=== PATIENT | male | born 1985 | race African-American/Black ===

== ENCOUNTER 2022-03-17 13:17 | Outpatient (CLI) | payer OTHER, SELFPAY ==
[2022-03-17 19:18] LABS: Basophils Absolute Auto 0.1 K/mm3 (0.0-0.1); Basophils Percent Auto 0.5 % (0.2-1.2); Eosinophils Absolute Auto 0.1 K/mm3 (0-0.3); Eosinophils Percent Auto 0.5 % (0-4.4); Hematocrit 48.1 % (42.0-52.0); Hemoglobin 15.4 g/dL (14.0-18.0); Immature Granulocyte Absolute 0.05 K/mm3 (0.00-0.031); Immature Granulocyte Percent A 0.3 % (0-0.5); Lymphocytes Absolute Auto 2.33 K/mm3 (0.9-3.2); Lymphocytes Percent Auto 15.4 % (18.3-44.2); Mean Corpuscular Hemoglobin 27.3 pg (26-34); Mean Corpuscular Volume 85.1 fl (80-100); Mean Platelet Volume 10.4 fl (7.4-10.4); Monocytes Absolute Auto 1.4 K/mm3 (0.1-0.6); Monocytes Percent Auto 9.1 % (2.6-8.5); Neutrophils Absolute Auto 11.2 K/mm3 (1.3-6.7); Neutrophils Percent Auto 74.2 % (45.5-73.1); Platelet Count Result 352 k/mm3 (150-375); Red Blood Count 5.65 M/mm3 (4.6-6.20); Red Cell Distribution Width 15.4 % (11.5-14.5); White Blood Count 15.1 K/mm3 (4.5-10.0)
[2022-03-17 19:35] LABS: Alanine Aminotransferase 25 U/L (6-50); Albumin Level 4.3 g/dL (3.5-5.1); Alkaline Phosphatase 60 U/L (38-126); Anion Gap 10 mmol/L (8-16); Aspartate Amino Transferase 38 U/L (17-59); Bilirubin,Total 0.6 mg/dL (0.2-1.3); Blood Urea Nitrogen 12 mg/dL (9-20); Calcium 9.8 mg/dL (8.4-10.2); Carbon Dioxide 30 mmol/L (22-30); Chloride 101 mmol/L (98-107); Cholesterol 169 mg/dL (0-200); Estimated Glomerular Filt Rate > 60; Glucose 89 mg/dL (65-110); HDL Direct 44 mg/dL; Potassium 4.1 mmol/L (3.4-5.0); Sodium 141 mmol/L (137-145); Triglycerides 83 mg/dL (<150)
[2022-03-17 19:46] LABS: LDL Cholesterol Direct 89 mg/dL
== END 2022-03-17 13:18 | disposition home or self-care (01) ==
LOC: ANHGOSHLAB 13:21
PROVIDERS: PCP Internal Medicine; Visit Provider Clinical Nurse Specialist
DX: Z13.228 Encounter for screening for other metabolic disorders (principal); Z13.220 Encounter for screening for lipoid disorders
CPT/HCPCS: 36415; 80053; 80061; 85025

== ENCOUNTER 2022-03-17 17:16 | Outpatient (CLI) | payer OTHER, SELFPAY ==
--- NOTE | ~2022-03-17 | US_ITS ---
EXAMINATION: US soft tissue pelvic DATE: 03/17/2022 17:45 INDICATION: Other specified disorders of male genital organs. TECHNIQUE: Multiple grayscale and Doppler ultrasound images of the pelvis were obtained. COMPARISON: ultrasound 01/27/15 FINDINGS: There is a 3.3 x 2.4 x 2.1 cm subcutaneous hypoechoic and anechoic mass in the perineum. No internal vascular flow. IMPRESSION: 1. 3.3 cm subcutaneous mass in the perineum with worsening from 01/27/15, most likely a sebaceous cyst . Reviewed, dictated and finalized at location A. EM DEVELOPER ASSOCIATE MANAGER IMPRESSION: 1. 3.3 cm subcutaneous mass in the perineum with worsening from 01/27/15, most l ikely a sebaceous cyst.
== END 2022-03-17 17:17 | disposition home or self-care (01) ==
LOC: ANHIMG 17:18
PROVIDERS: PCP Internal Medicine; Visit Provider Clinical Nurse Specialist
DX: N50.89 Other specified disorders of the male genital organs (principal)
CPT/HCPCS: 76857

== ENCOUNTER 2022-09-05 09:00 | Outpatient (CLI) | payer OTHER, SELFPAY ==
[2022-09-05 18:48] LABS: Basophils Absolute Auto 0.1 K/mm3 (0.0-0.1); Eosinophils Absolute Auto 0.2 K/mm3 (0-0.3); Hematocrit 45.1 % (42.0-52.0); Hemoglobin 13.8 g/dL (14.0-18.0); Immature Granulocyte Absolute 0.02 K/mm3 (0.00-0.031); Immature Granulocyte Percent A 0.3 % (0-0.5); Lymphocytes Absolute Auto 2.26 K/mm3 (0.9-3.2); Lymphocytes Percent Auto 38.2 % (18.3-44.2); Mean Corpuscular HGB Conc 30.6 g/dl (32-36); Mean Corpuscular Volume 88.3 fl (80-100); Mean Platelet Volume 10.8 fl (7.4-10.4); Monocytes Absolute Auto 0.6 K/mm3 (0.1-0.6); Monocytes Percent Auto 10.2 % (2.6-8.5); Neutrophils Absolute Auto 2.8 K/mm3 (1.3-6.7); Neutrophils Percent Auto 47.3 % (45.5-73.1); Platelet Count Result 308 k/mm3 (150-375); Red Blood Count 5.11 M/mm3 (4.6-6.20); Red Cell Distribution Width 15.6 % (11.5-14.5); White Blood Count 5.9 K/mm3 (4.5-10.0)
[2022-09-05 19:12] LABS: Thyroid Stimulating Hormone 0.959 uIU/mL (0.465-4.680)
[2022-09-05 19:26] LABS: Alanine Aminotransferase 25 U/L (6-50); Albumin Level 4.6 g/dL (3.5-5.1); Alkaline Phosphatase 63 U/L (38-126); Anion Gap 4 mmol/L (8-16); Aspartate Amino Transferase 91 U/L (17-59); Bilirubin,Total 0.4 mg/dL (0.2-1.3); Blood Urea Nitrogen 15 mg/dL (9-20); Calcium 9.3 mg/dL (8.4-10.2); Carbon Dioxide 30 mmol/L (22-30); Chloride 106 mmol/L (98-107); Estimated Glomerular Filt Rate > 60; Glucose 59 mg/dL (65-110); Potassium 3.8 mmol/L (3.4-5.0); Sodium 140 mmol/L (137-145)
== END 2022-09-05 09:01 | disposition home or self-care (01) ==
LOC: ANHGOSHLAB 09:01
PROVIDERS: PCP Internal Medicine; Visit Provider Clinical Nurse Specialist
DX: F41.9 Anxiety disorder, unspecified (principal); Z13.228 Encounter for screening for other metabolic disorders
CPT/HCPCS: 36415; 72100; 80053; 84443; 85025

== ENCOUNTER 2022-09-05 09:33 | Outpatient (CLI) | payer OTHER, SELFPAY ==
--- NOTE | ~2022-09-05 | XR_ITS ---
EXAMINATION: XR lumbar spine 2-3V DATE: 09/05/2022 09:54 INDICATION: Left-sided lumbar radiculopathy TECHNIQUE: Anteroposterior and lateral views of the lumbar spine, and cone-down lateral view of the l umbosacral junction were obtained. COMPARISON: 10/14/2016 FINDINGS: Again noted are 4 nonrib-bearing lumbar vertebra which for purposes of this report will be designated L1-L4. 4 degree thoracolumbar levocurvature L4 spondylolysis with pars intra-articular is defects an d 5 mm anterolisthesis L4 and S1. Vertebral body heights are normal. Moderate disc height loss at L4- S1. Remaining more cephalad lumbar and lower thoracic disc heights are normal. Minimal bilateral sacr oiliac osteoarthritis. IMPRESSION: 1. L4 spondylolysis with 5 mm anterolisthesis L5 on S1 and moderate associated disc height loss. Reviewed, dictated and finalized at location A.
== END 2022-09-05 09:34 | disposition home or self-care (01) ==
PROVIDERS: PCP Internal Medicine; Visit Provider Clinical Nurse Specialist
DX: M54.10 Radiculopathy, site unspecified (principal); M43.02 Spondylolysis, cervical region
CPT/HCPCS: 72100

== ENCOUNTER 2022-09-19 15:53 | Outpatient (CLI) | payer OTHER, SELFPAY ==
[2022-09-22 09:36] LABS: Amphetamines NEGATIVE ng/mL (<500); Barbiturates NEGATIVE ng/mL (<300); Benzodiazepines NEGATIVE ng/mL (<100); Cocaine Metabolite NEGATIVE ng/mL (<150); Marijuana Metabolite POSITIVE ng/mL (<20); Methadone Metabolite NEGATIVE ng/mL (<100); Opiates NEGATIVE ng/mL (<100); Oxidant NEGATIVE mcg/mL (<200); pH 6.5 (4.5-9.0)
== END 2022-09-19 15:54 | disposition home or self-care (01) ==
LOC: ANHGOSHLAB 15:59
PROVIDERS: PCP Internal Medicine; Visit Provider Anesthesiology Pain Medicine
DX: G89.29 Other chronic pain (principal)
CPT/HCPCS: 80307

== ENCOUNTER 2022-10-20 14:00 | Outpatient (RCR) | payer OTHER, SELFPAY ==
--- NOTE | 2022-09-29 15:43 | OPREHPOC ---
Outpatient Therapy Plan of Care This is a Multidisciplinary Plan of Care that may contain components documented by all disciplines (PT, OT, and ST.) PT Problem 1 PT Problem #1 Knowledge Deficit PT Goal 1 Goal Pt to be IND with issued HEP Target Visit 4 PT Problem 2 PT Problem #2 Pain PT Goal 1 Goal Pt to report L hip pain no greater than 3/10 in the last week Target Visit 4 PT Goal 2 Goal Pt to report 75% improvement in overall symptoms Target Visit 4 PT Problem 3 PT Problem #3 Impaired Sensation PT Goal 1 Goal Pt to report equal stretch sensation with passive piriformis stretching Target Visit 4 PT Goal 2 Goal Pt to decline radicular symptoms in the last week.
--- NOTE | 2022-09-29 15:43 | PTOPEVAL1 ---
Assessment and note entered by Felix Riojas, PT, DPT Evaluation Information Assessment Status Evaluation Diagnosis low back pain Onset 6 months Subjective Information Pt reports a 2-3 year history of back pain that has worsened significantly over the last 6-7 months without a known GEOFFREY. Pt states he is a pretty active sriram and does a lot of lifting, carrying, and moving things. Pt states his leg throbs when he lays down and he has to push hard onto it to make it stop. Pt states he can stand for 20-30 mins prior to needing to sit. 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 Reported Pain Level Pain Score 0: Self Report Assessment PT Clinical Summary Peter presents to therapy today for his initial evaluation with a diagnosis of lumbar spondylosis with radiculopathy. Today he demonstrates symptoms consistent with piriformis syndrome. He demonstrates decreased muscle length of his piriformis and tenderness to palpation. He also demonstrates pelvic asymmetries in supine. Skilled therapy services are indicated to address the defects noted above, to educate on body mechanics with functionals lifts for work, for pain management, and to return to PLOF without pain medication. Plan of Care Interventions Electrical Stimulation,Gait Training,Hot Pack/Cold Pack,Manual Therapy,Neuro Re-education,Patient/ Caregiver Educati,Therapeutic Activities, Therapeutic Exercise PT Services Indicated Yes Treatment Frequency and 1x/wk for 4 wks Duration These treatments will address the objective and functional deficits as defined above. The patient will be advanced safely and appropriately in order for the patient to progress towards his/her prior level of function. Additional exercises will be introduced and as well as a comprehensive home exercise program upon discharge, if needed, ?to ensure carryover of functional gains achieved in the clinic. This treatment plan has been reviewed and agreement upon by the patient.
--- NOTE | 2022-10-13 15:43 | PCPTNOTE ---
Pt no show no call. Therapist left voicemail.
--- NOTE | 2022-10-27 16:02 | PCPTNOTE ---
Patient did not show up for scheduled appointment this date. Called to follow up, unable to leave voicemail.
--- NOTE | 2022-12-13 11:28 | PTOPDC ---
Assessment and note entered by Felix Riojas, PT, DPT Evaluation Information Assessment Status Discharge - Pt Not Present Diagnosis low back pain Onset 6 months Subjective Information Pt did not show up with re-eval on 10/27/22. Unable to leave voicemail. He will be discharged at this time. Assessment PT Clinical Summary Peter completed 3 visits of skilled therapy from 09/29/22 to 10/21/22. He will be discharged at this time.
== END 2022-12-13 14:48 | disposition home or self-care (01) ==
LOC: ANHGOSHPT 14:00
PROVIDERS: PCP Internal Medicine; Visit Provider Anesthesiology Pain Medicine
DX: M54.10 Radiculopathy, site unspecified (principal); M54.9 Dorsalgia, unspecified; M43.16 Spondylolisthesis, lumbar region
CPT/HCPCS: 97110; 97140; 97161; 97530; 99199

== ENCOUNTER 2024-06-24 10:01 | Outpatient (CLI) | payer OTHER, SELFPAY ==
[2024-06-24 12:11] LABS: Alanine Aminotransferase 56 U/L (6-50); Albumin Level 4.6 g/dL (3.5-5.1); Alkaline Phosphatase 75 U/L (38-126); Anion Gap 10 mmol/L (4-12); Aspartate Amino Transferase 48 U/L (17-59); Bilirubin,Total 0.3 mg/dL (0.2-1.3); Blood Urea Nitrogen 19 mg/dL (9-20); Calcium 9.9 mg/dL (8.4-10.2); Carbon Dioxide 26 mmol/L (22-30); Chloride 105 mmol/L (98-107); Cholesterol 164 mg/dL (0-200); Estimated Glomerular Filt Rate 58; Glucose 102 mg/dL (65-110); HDL Direct 35 mg/dL; Potassium 4.4 mmol/L (3.4-5.0); Sodium 141 mmol/L (137-145); Triglycerides 282 mg/dL (<150)
[2024-06-24 12:24] LABS: LDL Cholesterol Direct 75 mg/dL
[2024-06-24 12:36] LABS: Basophils Absolute Auto 0.1 K/mm3 (0.0-0.1); Basophils Percent Auto 0.9 % (0.2-1.2); Eosinophils Absolute Auto 0.2 K/mm3 (0-0.3); Eosinophils Percent Auto 2.6 % (0-4.4); Hematocrit 46.5 % (42.0-52.0); Hemoglobin 14.5 g/dL (14.0-18.0); Immature Granulocyte Absolute 0.04 K/mm3 (0.00-0.031); Immature Granulocyte Percent A 0.5 % (0-0.5); Lymphocytes Absolute Auto 2.88 K/mm3 (0.9-3.2); Lymphocytes Percent Auto 36.1 % (18.3-44.2); Mean Corpuscular HGB Conc 31.2 g/dl (32-36); Mean Corpuscular Hemoglobin 27.3 pg (26-34); Mean Corpuscular Volume 87.4 fl (80-100); Mean Platelet Volume 10.5 fl (7.4-10.4); Monocytes Absolute Auto 0.6 K/mm3 (0.1-0.6); Monocytes Percent Auto 7.8 % (2.6-8.5); Neutrophils Absolute Auto 4.2 K/mm3 (1.3-6.7); Neutrophils Percent Auto 52.1 % (45.5-73.1); Platelet Count Result 344 k/mm3 (150-375); Red Blood Count 5.32 M/mm3 (4.6-6.20); Red Cell Distribution Width 14.9 % (11.5-14.5)
[2024-06-24 14:21] LABS: Hemoglobin A1C 5.8 % (<5.7)
== END 2024-06-24 10:02 | disposition home or self-care (01) ==
PROVIDERS: PCP Internal Medicine; Visit Provider Clinical Nurse Specialist
DX: Z13.228 Encounter for screening for other metabolic disorders (principal); Z13.220 Encounter for screening for lipoid disorders; F41.9 Anxiety disorder, unspecified; R74.01 Elevation of levels of liver transaminase levels; D72.829 Elevated white blood cell count, unspecified
CPT/HCPCS: 36415; 80053; 80061; 83036; 84443; 85025